=== PATIENT | female | born 1980 | race African-American/Black ===

== ENCOUNTER → 2021-04-17 | Outpatient (CLI) | payer OTHER ==
--- NOTE | 2021-04-17 16:29 | RAD ---
EXAM: Pelvic ultrasound HISTORY: Pelvic pain. COMPARISON: None. FINDINGS: Sonographic evaluation of the pelvis was performed transabdominally and transvaginally. The uterus is anteverted and measures 7.0 x 4.5 x 3.9 cm. The endometrial stripe measures 7 mm. A [place] metrial fibroid along the posterior aspect of the fundus measures 2.4 x 2.2 x 2.3 cm. A small amount of free pelvic fluid is likely physiologic. The right ovary measures 2.9 x 1.7 x 1.6 cm. The left ovary measures 2.9 x 2.1 x 1.5 cm. There is nor mal Doppler flow bilaterally. There are no suspicious lesions. IMPRESSION: 1. 2.4 cm myometrial fibroid. No cause for acute pain is identified. Electronically signed by: Joe Denton MD (04/17/2021 4:27 PM) [facility]
== END ==
LOC: US 15:29
PROVIDERS: ATTEND Family Medicine Sports Medicine
DX: D25.1 Intramural leiomyoma of uterus (principal); R10.2 Pelvic and perineal pain
CPT/HCPCS: 76830; 76856